=== PATIENT | female | born 1985 | race Caucasian/White ===

== ENCOUNTER 2020-08-12 06:40 | Outpatient (NON) | payer OTHER, SELFPAY ==
[2020-08-12 17:47] LABS: SARS-CoV-2 RNA PCR Negative
== END 2020-08-12 06:41 ==
PROVIDERS: PCP Family Medicine; Visit Provider Nurse Practitioner Family
DX: Z20.828 Contact with and (suspected) exposure to other viral communicable diseases (principal); R68.89 Other general symptoms and signs
CPT/HCPCS: 87635; C9803; U0003

== ENCOUNTER 2020-09-11 06:51 | Outpatient (NON) | payer OTHER, SELFPAY ==
[2020-09-16 08:59] LABS: SARS-CoV-2 RNA PCR Negative
== END 2020-09-11 06:52 ==
LOC: ANHCOVIDDT 07:09
PROVIDERS: PCP Family Medicine; Visit Provider Nurse Practitioner Family
DX: Z20.828 Contact with and (suspected) exposure to other viral communicable diseases (principal); R51.9 Headache, unspecified; R68.89 Other general symptoms and signs
CPT/HCPCS: 87635; C9803; U0003

== ENCOUNTER → 2020-12-28 00:33 | Outpatient (CLI) | payer OTHER, SELFPAY ==
[2020-12-28 19:08] LABS: SARS-CoV-2 RNA PCR Negative
== END ==
PROVIDERS: PCP Family Medicine; Visit Provider Obstetrics & Gynecology
DX: Z01.812 Encounter for preprocedural laboratory examination (principal); Z20.822 Contact with and (suspected) exposure to COVID-19
CPT/HCPCS: C9803; U0003; U0005

== ENCOUNTER 2020-12-28 12:34 | Outpatient (CLI) | payer OTHER, SELFPAY | END 2020-12-28 12:35 | disposition home or self-care (01) | PROVIDERS: PCP Family Medicine; Visit Provider Obstetrics & Gynecology | DX: N83.209 Unspecified ovarian cyst, unspecified side (principal) | CPT/HCPCS: 36415; 86850; 86900; 86901 ==

== ENCOUNTER 2020-12-31 00:10 | Day surgery (SDC) | payer OTHER, SELFPAY ==
[2020-12-27 17:07] VITALS: BMI 24.2
--- NOTE | 2020-12-28 09:23 | PM.IMHP ---
H&P: HPI History of Present Illness Date/Time: 12/28/20 09:23 Chief Complaint: pain Narrative: Jyoti Simmons is a 35 year old female G3 P 3 status post hysterectomy and right salpingo-oophorectomy is admitted for laparoscopic left salpingo-oophorectomy she is complex left ovarian cyst pain. Risks and benefits and procedure reviewed full. She had all questions answered and asked to proceed Review of Systems Review of Systems: All systems reviewed & are unremarkable except as noted in HPI and below PMFSH Past Medical History Medical History Asthma BMI 25.0-25.9,adult BMI 26.0-26.9,adult Endometriosis Surgical History Surgical History History of bunionectomy of left great toe Family History Family History Father Hypertension Grandparent Hypertension Carcinoma of colon Family history of coronary artery disease Family history of malignant neoplasm of ovary Mother Hyperlipidemia Sibling No problems noted. 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 Gender identity (if verbalized by the patient): Female Spiritual care concerns: No Meds Home Medications and Allergies Home Medications Medication Instructions Recorded Confirmed Type No Home Medications 12/27/20 12/27/20 History Allergies Allergy/AdvReac Type Severity Reaction Status Date / Time No Known Allergies Allergy Verified 12/27/20 17:12 Exam Const: General: no acute distress Eyes: General: appearance normal, both eyes and all related structures Neck: Neck: supple and no JVD Thyroid: thyroid normal Resp: Effort & Inspection: normal respiratory effort Auscultation: clear to auscultation bilaterally Cardio: Rate: regular rate Rhythm: regular rhythm GI: Inspection: non-distended GI Palp: Yes Soft to palpation, No Tenderness to palpation present (GI) and No Guarding due to palpation present (GI) Auscultation: normal bowel sounds : General: Yes bladder normal to palpation External Female Exam: normal external appearance Speculum Exam - Vagina: normal appearance of the vagina and normal vaginal discharge Speculum Exam - Cervix: Cervix absent Bimanual exam- vagina & uterus: uterus absent Bimanual Exam- Adnexa, other: tender on the left Skin: General skin exam: no rashes or lesions noted Extrem: General: normal to inspection and no edema Psych: Mental Status: mental status grossly normal Affect: normal affect Assessment and Plan Additional Plan impression: Complex left ovarian cyst Plan: Laparoscopic left salpingo-oophorectomy she
[2020-12-31] VITALS (10 sets, daily range): BP systolic 97–126; BP diastolic 59–91; PULSE 55–88; RESP 12–18; TEMP 36.1–36.3; O2SAT 99–100
--- NOTE | 2020-12-31 06:59 | WPDHPUPDATE1 ---
History and Physical Update Update Date/Time: 12/31/20 06:59 History and Physical has been reviewed, including an updated exam of the patient. There are NO changes in the patient's condition. Risks, benefits, and alternatives have been discussed and questions answered. Patient agrees to proceed with procedure.
--- NOTE | 2020-12-31 09:57 | P.PNAN_ITS ---
Anes - Initial Pre Proc Eval Procedure: Operation Date: 12/31/20 11:30 Proposed Procedures p Laparoscopic Left Salpingo-Oophorectomy - Mathieu Hess MD Date/Time: 12/31/20 09:57 Surgeon: Mathieu Hess MD Pre Op Diagnosis: Pain, Left Ovarian Cyst Patient Data Age: 35 Gender: F Height: 5 ft 6 in Weight: 72.1 kg Last Vital Signs Temp 36.1 C L 12/31/20 09:47 Pulse 83 12/31/20 09:47 Resp 18 12/31/20 09:47 BP 120/70 12/31/20 09:47 Pulse Ox 99 12/31/20 09:47 Allergies Allergy/AdvReac Type Severity Reaction Status Date / Time No Known Allergies Allergy Verified 12/31/20 09:49 Home Medications Medication Instructions Recorded Confirmed Type hydrocodone-acetaminophen 1 tablet PO Q6H PRN #20 tablet 12/31/20 Rx Patient hx anesthesia problems: none Family hx anesthesia problems: none PMFSH Past Medical History Medical History Asthma BMI 25.0-25.9,adult BMI 26.0-26.9,adult Endometriosis Surgical History Surgical History History of bunionectomy of left great toe Family History Family History Father Hypertension Grandparent Hypertension Carcinoma of colon Family history of coronary artery disease Family history of malignant neoplasm of ovary Mother Hyperlipidemia Sibling No problems noted. 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 Questions were solicited and answers provided to the satisfaction of the patient/family/POA.
[2020-12-31] MEDS: KETOROLAC 15 MG/ML VIAL (*BKC) IV PUSH (10:09)
[2020-12-31] MEDS: ACETAMINOPHEN 500 MG TABLET 1000 MG PO (10:09)
[2020-12-31] MEDS: LACTATED RINGERS 1,000 ML 30 ML IV CONT (10:10)
[2020-12-31] MEDS: SCOPOLAMINE 1.5 MG PATCH TRANSDERM (10:18)
--- NOTE | 2020-12-31 11:37 | P.OP_ITS ---
Procedure Note - Detailed Date of procedure: 12/31/20 Pre-op diagnosis: Pain, Left Ovarian Cyst Surgeon: Mathieu Hess MD Postop diagnosis: Pelvic pain/left ovarian cyst Procedure: Laparoscopic left salpingo-oophorectomy Anesthesia: General endotracheal EBL: 5cc Complications: None Findings absent uterus right ovary and tube Description of procedure: The patient was prepped draped in the normal sterile fashion placed in the dorsal lithotomy position. Under excellent general endotracheal anesthesia weighted speculum placed in posterior fornix vagina. A sponge stick was placed in the bladder draining clear urine. The weighted speculum was removed and the gloves were changed. A supraumbilical incision made the Veress needle passed in the abdomen. The abdomen filled with CO2 gas [id number]. The 5mm trocar advanced under direct visualization assuring no injury. The patient was placed in Trendelenburg and a suprapubic incision made. No injury seen as it was seen under direct visualization. A left lower quadrant incision made in the 8mm trocar advanced under direct visualization assuring no injury. The there were some adhesions from the colon to the left lateral sidewall and these were sharply dissected. The large left ovarian cyst was seen for documentation undertaken the i nfundibulopelvic structure was then skeletonized and serially clamped burned and cut with the LigaSure. This was placed in the Endo-Catch and removed through the left lower quadrant. Hemostasis was assured and irrigation was undertaken to clear. The gas removed from the abdomen and the trocars removed. The trocars closed with 4 O Monocryl and glue. The patient was awakened. All sponge, needle, instrument counts were correct. There were no immediate complications
[2020-12-31] MEDS: oxyCODONE HCL (*CRX) 5 MG TAB IR PO (13:29)
--- NOTE | 2020-12-31 13:44 | SUR.PHASEII ---
estrogel sample given to patient
== END 2020-12-31 14:00 | disposition home or self-care (01) ==
PROVIDERS: Family Provider Family Medicine; PCP Family Medicine; Visit Provider Obstetrics & Gynecology
PROC: (CPT 49320; principal; 2020-12-31 11:30)
DX: R10.2 Pelvic and perineal pain (principal); N83.02 Follicular cyst of left ovary; N83.8 Other noninflammatory disorders of ovary, fallopian tube and broad ligament; N73.6 Female pelvic peritoneal adhesions (postinfective); Z87.891 Personal history of nicotine dependence
CPT/HCPCS: 58661; 36415; 86850; 86900; 86901; 88305; A9270; C9803; J0330; J1100; J1885; J2250; J2405; J2704; J3010; J7120; U0003; U0005

== ENCOUNTER 2022-01-27 02:12 | Day surgery (SDC) | payer OTHER, SELFPAY ==
[2022-01-26 09:55] VITALS: BMI 26.6
--- NOTE | 2022-01-26 10:00 | PC.NURSE ---
Report to the Outpatient Waiting Room, entrance under the green pavilion located off [facility], at time 0900 on date _01/27/22 . OR Time: ___1100 . - You and your visitor will be asked a series of questions to screen for COVID 19 for your protection. - A mask is required within the hospital. Preoperative COVID Testing Requirements: No COVID Test needed if: (proof is required; if not received patient will have Rapid Test prior to entry) - Patient has received COVID Vaccine at least 14 days prior to procedure date or - Patient has positive COVID test result within last 90 days of surgery date. COVID Test needed if above criteria is not met If not COVID vaccinated a COVID test must be conducted within 72 hours of surgery and patient is asked to isolate self from time of testing until procedure. You will go to the [facility] for your COVID testing. The [facility] is located at the corner of [address] [facility]. You will only be called if COVID results are positive and your surgeon may reschedule your elective surgery date. Patients may have clear liquids (water, carbonated beverages, clear teas, apple juice) until 3 hours prior to surgery with a maximum of 20 ounces. - No food from midnight until time of surgery - Infants may have breast milk until 4 hours before surgery, formula 6 hours prior to surgery. - Children will be allowed to drink immediately following surgery. If applicable, please bring a bottle or sippy cup to assist with drinking. Juice, water, soda, and popsicles are readily available. For infants on formula, please bring formula the day of surgery. Pacifiers are allowed. Take the following medications with a SIP of water the morning of surgery: ___INHALER IF NEEDED Medications to discontinue per physician NONE Date to take last dose Please no make-up, nail irish, hairspray, perfume, deodorant, or body powder the day of surgery. No jewelry (including any body piercings) or valuables the day of surgery, leave them at home. Please take a shower or bath the night before, or the morning of, surgery with an antibacterial soap. Wear comfortable, loose fitting clothing. Children are encouraged to wear pajamas. - Jewelry must be removed prior to entering the operating room. Rings and piercings that are not removed may be cut off. - The hospital will not accept responsibility for valuables. - Please leave all valuables, including medications, at home the day of surgery. If you are going home after surgery, a licensed sprinkler truck driver must drive you home. - NO public transportation without another adult. - We recommend that an adult stay with you for 24 hours following discharge. - We also recommend that you do not drive, make important decision, drink alcoholic beverages, or take any drugs that were not prescribed by your health care provider for at least 24 hours after your discharge time. For Pediatric surgeries, we recommend two adults accompany the child home (only one inside the building at this time). One visitor will be allowed to accompany the patient into the hospital. Patients visitor will be instructed to remain with patient at all times or leave the building. We will allow the visitor to come back to the postoperative area when patient is ready. Follow any additional instructions given to you from your surgeon. Telephone instructions given to ___PATIENT and asked if any additional questions and then verbalized understanding. Patient advised to call surgeon office or pre surgery nurse liaison [phone] if any additional questions.
--- NOTE | 2022-01-26 16:40 | PM.IMHP ---
H&P: HPI History of Present Illness Date/Time: 01/26/22 16:40 Chief Complaint: nasal obstruction nasal congestion septal deviation nasal septal fracture nasal bone fracture Narrative: patient presents for planned surgical procedure no change in symptoms no change in history Review of Systems Constitutional: Constitutional: Denies fatigue, Denies fever(s) and Denies lethargy Eyes: Eyes: Denies blurry vision and Denies change in vision ENT: Reports as per HPI Cardiovascular: Cardiovascular: Denies chest pain Respiratory: Respiratory: Denies cough Endocrine: Endocrine: Denies fatigue Hematologic/Lymphatic: Hematologic/Lymphatic: Denies easy bleeding, Denies easy bruising and Denies lymphadenopathy Allergic/Immunologic: Allergic/Immunologic: Denies seasonal rhinorrhea [facility] Past Medical History Medical History Asthma BMI 25.0-25.9,adult BMI 26.0-26.9,adult Endometriosis Surgical History Surgical History History of bunionectomy of left great toe Family History Family History Father Hypertension Grandparent Hypertension Carcinoma of colon Family history of coronary artery disease Family history of malignant neoplasm of ovary Mother Hyperlipidemia Sibling No problems noted. 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 Gender identity (if verbalized by the patient): Female Spiritual care concerns: No Meds Home Medications and Allergies Home Medications Medication Instructions Recorded Confirmed Type estradiol 0.5 mg tablet 0.5 mg PO DAILY 01/24/22 01/26/22 History albuterol 1 mcg INHALATION PRN PRN 01/26/22 01/26/22 History Allergies Allergy/AdvReac Type Severity Reaction Status Date / Time No Known Allergies Allergy Verified 01/26/22 09:44 Exam Const: General: cooperative, healthy appearing, comfortable, well developed and alert HENMT: Head: normal to inspection, normocephalic and atraumatic Ears: hearing grossly normal bilaterally, external ears normal, TM's normal bilaterally and EAC's normal General nose exam: external nose not normal ( right deviation ecchymosis), Normal nares present, No nasal polyps present, Normal nasal mucous membranes and turbinates present and abnormal septum ( left deviation) Face and sinus: normal facial exam Mouth: Yes Normal oral and palatal mucosa present, Yes lip normal, Yes tongue normal, Yes oropharynx normal and Yes moist mucous membranes Teeth and gingiva: dentition normal and gingiva normal Throat: posterior oropharynx normal, tonsils normal and uvula midline Eyes: General: appearance normal, both eyes and all related structures Periorbital: periorbital findings normal Eyelids: eyelids normal Conjunctivae: conjunctivae normal Sclera: sclerae normal Neck: Neck: normal visual inspection, full ROM and no lymphadenopathy Thyroid: thyroid normal Lymphatic: no lymphadenopathy noted Resp: Effort & Inspection: normal respiratory effort and able to speak in complete sentences Cardio: Jugular venous distension: no JVD Neuro: Cranial nerves: Yes CN's II-XII intact bilaterally Assessment and Plan Assessment and plan (1) Nasal obstruction: Code(s): J34.89 - Other specified disorders of nose and nasal sinuses Status: Acute Assessment and Plan: plan is for the operating room close reduction nasal septal
[2022-01-27] VITALS (8 sets, daily range): BP systolic 105–125; BP diastolic 61–94; PULSE 57–78; RESP 12–16; TEMP 36.1–36.3; O2SAT 98–100; BMI 26.7
--- NOTE | 2022-01-27 07:21 | WPDHPUPDATE1 ---
History and Physical Update Update Date/Time: 01/27/22 07:21 History and Physical has been reviewed, including an updated exam of the patient. There are NO changes in the patient's condition. Risks, benefits, and alternatives have been discussed and questions answered. Patient agrees to proceed with procedure.
[2022-01-27] MEDS: ACETAMINOPHEN 500 MG TABLET 1000 MG PO (09:30)
[2022-01-27] MEDS: LACTATED RINGERS 1,000 ML 30 ML IV CONT ×2 (10:01→13:32)
--- NOTE | 2022-01-27 10:07 | P.PNAN_ITS ---
Anes - Initial Pre Proc Eval Procedure: Operation Date: 01/27/22 11:00 Proposed Procedures p Closed Reduction Nasal Fracture, - Cirilo Laguerre MD s Repair Nasal Septal Fracture - Cirilo Laguerre MD Date/Time: 01/27/22 10:07 Surgeon: Cirilo Laguerre MD Pre Op Diagnosis: nasal fracture Patient Data Age: 36 Gender: F Height: 1.65 m Weight: 73 kg Last Vital Signs Temp 36.1 C L 01/27/22 09:34 Pulse 78 01/27/22 09:34 Resp 16 01/27/22 09:34 BP 113/76 01/27/22 09:34 Pulse Ox 99 01/27/22 09:34 Allergies Allergy/AdvReac Type Severity Reaction Status Date / Time No Known Allergies Allergy Verified 01/27/22 09:24 Home Medications Medication Instructions Recorded Confirmed Type estradiol 0.5 mg tablet 0.5 mg PO DAILY 01/24/22 01/27/22 History albuterol 1 mcg INHALATION PRN PRN 01/26/22 01/27/22 History Patient hx anesthesia problems: none Family hx anesthesia problems: none Results Review: All pre-operative results and documents have been reviewed as part of the pre-operative evaluation. [facility] Past Medical History Medical History Asthma BMI 25.0-25.9,adult BMI 26.0-26.9,adult Endometriosis Surgical History Surgical History (Updated 01/27/22 @ 10:08 by Mathieu Syed MD) H/O breast augmentation H/O laparoscopy H/O: hysterectomy History of bunionectomy of left great toe Family History Family History Father Hypertension Grandparent Hypertension Carcinoma of colon Family history of coronary artery disease Family history of malignant neoplasm of ovary Mother Hyperlipidemia Sibling No problems noted. 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 Informed Consent: The patient's anesthetic plan and its attendant risks and benefits were discussed with the patient/family/POA. Questions were solicited and answers provided to the satisfaction of the patient/family/POA.
[2022-01-27] MEDS: SCOPOLAMINE 1.5 MG PATCH TRANSDERM (10:18)
[2022-01-27] MEDS: OXYMETAZOLINE HCL 0.05% NAS 15 ML BTL (*BKC) 1 SPRAY NASAL (11:43)
[2022-01-27] MEDS: GELATIN SPONGE 12-7MM 1 EACH TOPICAL (11:44)
[2022-01-27] MEDS: fentaNYL CITRATE INJ (*CRX) 100 MCG/2 ML VIAL 25 MCG IV PUSH ×6 (12:20→13:15)
--- NOTE | 2022-01-27 13:04 | W.PM.PROC2 ---
Procedure Note - Detailed Date of Procedure 01/27/22 Pre-op Diagnosis nasal fracture, nasal septal fracture, nasal obstruction Post-op Diagnosis Same Procedure Performed Turbinate outfracture nasal septal closed reduction nasal bone closed reduction Surgeon Cirilo Laguerre MD Anesthesia General Indications See above Findings Moderately straight nasal septum following closed reduction straightened dorsum of nose mild reduction in dorsal hump much more patent airway. Description of Procedure Patient identified consent verified. Patient brought operating room. Time-out performed. General anesthesia induced. Endotracheal tube secured. Taped to lower lip midline. Afrin-soaked pledgets placed in bilateral nasal passages. Patient prepped and draped. Second time-out performed. Afrin-soaked pledgets removed. Nose examined with headlight nasal speculum aforementioned findings noted. Stokes elevator utilized to remove sorry Boies elevator utilized to outfracture the turbinates infractured the septum from left to right straightening. Much more patent airways. Distance from columella to nasal apex right knee on measured finger placed to ensure safety of the orbit Stokes elevator placed in the left nasal passage outfractured while the right nasal was pushed in his it was convex crack noted. Blood noted as well confirming refraction of the bone. Much better cosmesis following this. Bilateral nasal passages suction to the choana. Gelfoam placed in the left nasal vault stenting it open. Brown tape placed over the dorsum. Aquaplast splint fashioned and placed over the dorsum as well over the brown tape. Brown tape placed over the Aquaplast splint. This marked end of the procedure. Care the patient turned over to Anesthesiology. I performed all dictated portions of the procedure. No complications. Total blood loss approximately 5 cc. Estimated Blood Loss 5 Drains No Packing Yes Pathology None sent Complications No immediate complications Condition Stable Disposition PACU
[2022-01-27] MEDS: oxyCODONE HCL (*CRX) 5 MG TAB IR PO (13:48)
== END 2022-01-27 14:25 | disposition home or self-care (01) ==
PROVIDERS: PCP Family Medicine; Visit Provider Otolaryngology
PROC: 0NSBXZZ Reposition Nasal Bone, External Approach (ICD-10-PCS; CPT 21315; principal; 2022-01-27 11:00)
DX: J34.89 Other specified disorders of nose and nasal sinuses (principal); S02.2XXA Fracture of nasal bones, initial encounter for closed fracture; X58.XXXA Exposure to other specified factors, initial encounter; J45.909 Unspecified asthma, uncomplicated; N80.9 Endometriosis, unspecified; J34.2 Deviated nasal septum; R09.81 Nasal congestion; Z79.51 Long term (current) use of inhaled steroids; Z87.891 Personal history of nicotine dependence
CPT/HCPCS: 21320; 30930; A9270; J0330; J2250; J2405; J2704; J3010; J7120

== ENCOUNTER 2023-05-08 14:46 | Emergency (ER) | payer OTHER, SELFPAY ==
--- NOTE | ~2023-05-08 | XR_ITS ---
XR hand LT min 3V DATE: 05/08/2023 15:15 INDICATION: Pain in hand after playing softball 2 weeks ago TECHNIQUE: 3 views COMPARISON: None FINDINGS: No fracture or dislocation, periosteal reaction or bone destruction, erosive change or jono drocalcinosis. Joint spaces are preserved. IMPRESSION: Negative Reviewed, dictated and finalized at location A. IMPRESSION: Negative
[2023-05-08 15:08] VITALS: BP 105/77; PULSE 74; RESP 16; TEMP 36.1; O2SAT 100
--- NOTE | 2023-05-08 15:17 | ED.UPPEXIN ---
HPI - Extremity Injury (Upper) General Chief Complaint: Extremity Injury, Upper Stated Complaint: lt hand pain Time Seen by Provider: 05/08/23 15:17 Source: patient Mode of arrival: ambulatory Limitations: no limitations History of Present Illness HPI narrative: 38-year-old female presents with complaint of pain to dorsal aspect of left hand for 3 weeks. Reports that she noticed pain during a softball game. Unsure if it was related to catching a ball or when she was batting. States she play softball several nights a week. Pain worse when lifting heavy objects and gripping. Patient would like a x-ray today because she is concerned for fracture due to continued pain. Range of motion and distal neurovascularly intact. All systems reviewed and negative except as noted above. Related Data Home Medications Medication Instructions Recorded Confirmed albuterol 90 mcg/actuation aerosol 1 mcg inhalation PRN PRN Shortness 01/26/22 05/08/23 inhaler Of Breath Allergies Allergy/AdvReac Type Severity Reaction Status Date / Time No Known Allergies Allergy Verified 01/01/23 13:06 Review of Systems Review of Systems: CONSTITUTIONAL: Denies fever, chills, or sweats. EYES: Denies visual changes, redness, or discharge. ENT: Denies rhinorrhea, congestion, sore throat, or otalgia. CARDIOVASCULAR: Denies chest pain, palpitations, or edema. RESPIRATORY: Denies cough or dyspnea. GASTROINTESTINAL: Denies abdominal pain, nausea, vomiting, or diarrhea. GENITOURINARY: Denies dysuria or hematuria. SKIN: Denies rash or itching. MUSCULOSKELETAL: Denies back pain, joint pain, or myalgia. Reports pain to left hand. NEUROLOGIC: Denies headache, numbness, or weakness. PSYCHIATRIC: Denies anxiety or depression. All other systems reviewed are negative, except as documented in HPI. [facility] Past Medical History Medical History Asthma BMI 25.0-25.9,adult BMI 26.0-26.9,adult BMI 27.0-27.9,adult Endometriosis Surgical History Surgical History H/O breast augmentation H/O laparoscopy H/O: hysterectomy History of bunionectomy of left great toe Family History Family History Father Hypertension Grandparent Hypertension Carcinoma of colon Family history of coronary artery disease Family history of malignant neoplasm of ovary Mother Hyperlipidemia Sibling No problems noted. Social History Social History Smoking packs per day: 1 Smoking cigarettes per day: 20.0 Years smoked: 5 Smoking pack-years: 5.00 Smoking status: Former smoker Tobacco type: cigarettes Smoking end date: 10/21/07 Alcohol intake: current Drinks per week: 6 Substance use: never Substance use type: does not use Lack of Transportation: No Lack of Food: Never True Current Housing: I Have Housing Concerned About Future Housing: No Difficulty Paying Gas/Electric Bills: No Difficulty Paying for Meds: No Currently Unemployed: No Education: Master's Degree or Higher Difficulty w/ Childcare or Family Care: No Living arrangements: with family Occupation/Education: occupation Additional occupation/education comments: [employer] Gender identity (if verbalized by the patient): Female Spiritual care concerns: No Comments At time of signature, agree with nursing past medical, surgical, social and family history. There is no relevant family history pertinent to the presenting complaint. Exam Narrative: GENERAL: This is a well-nourished, well-developed patient, in no apparent distress. HEAD: normocephalic, atraumatic. EYES: PERRL. Sclera clear/white. Vision is grossly intact. EARS: External ears normal NOSE: External nose normal NECK: Neck supple, non-tender without ly
== END 2023-05-08 15:39 | disposition home or self-care (01) ==
PROVIDERS: Emergency Provider Nurse Practitioner Family; PCP Family Medicine
DX: S63.92XA Sprain of unspecified part of left wrist and hand, initial encounter (principal); T14.90XA Injury, unspecified, initial encounter; Z87.891 Personal history of nicotine dependence
CPT/HCPCS: 73130; 99213; G0463

== ENCOUNTER → 2023-06-21 16:23 | Outpatient (CLI) | payer OTHER, SELFPAY ==
--- NOTE | ~2023-06-21 | MM_ITS ---
EXAMINATION: MM scrn kristal implant BI w pretty HISTORY: Screening mammogram TECHNIQUE: Craniocaudal and mediolateral oblique 3-D tomosynthesis images with implant displacement a nd synthetic 2-D images were generated. Craniocaudal and mediolateral oblique views of the breasts wi thout implant displacement were obtained using full field digital mammography. CAD analysis was submi tted and interpreted. COMPARISON: 08/25/2016 BREAST PARENCHYMAL COMPOSITION: The breasts are heterogeneously dense, which may obscure small masses . FINDINGS: There is no evidence of suspicious mass, calcification, or architectural distortion to sugg est malignancy in either breast. There has been no suspicious interval change. IMPRESSION: 1. No mammographic evidence of malignancy. 2. Recommend routine screening mammography in one year. BI-RADS Category 1: Negative Reviewed, dictated and finalized at location A.
== END ==
PROVIDERS: PCP Obstetrics & Gynecology; Visit Provider Obstetrics & Gynecology
DX: Z12.31 Encounter for screening mammogram for malignant neoplasm of breast (principal)
CPT/HCPCS: 77063; 77067

== ENCOUNTER 2025-03-21 10:32 | Outpatient (CLI) | payer OTHER, SELFPAY ==
--- NOTE | ~2025-03-21 | XR_ITS ---
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 No fracture or t raumatic malalignment. No focal soft tissue abnormality. No foreign bodies. Stable appearance to ossi fic density projecting dorsal to the region of the second/third carpal metacarpal joints posteriorly, best seen on lateral view, likely related to remote trauma. Impression: 1: No acute bone or joint abscess. Reviewed, dictated and finalized at location A. Impression: 1: No acute bone or joint abscess.
== END 2025-03-21 10:33 | disposition home or self-care (01) ==
LOC: MICIMG 10:33
PROVIDERS: PCP Family Medicine
DX: M79.641 Pain in right hand (principal)
CPT/HCPCS: 73130

== ENCOUNTER 2025-04-08 09:09 | Outpatient (CLI) | payer OTHER, SELFPAY ==
--- NOTE | ~2025-04-08 | MM_ITS ---
EXAMINATION: MM scrn kristal implant BI w pretty HISTORY: Screening mammogram TECHNIQUE: Craniocaudal and mediolateral oblique 3-D tomosynthesis images with implant displacement a nd synthetic 2-D images were generated. Craniocaudal and mediolateral oblique views of the breasts wi thout implant displacement were obtained using full field digital mammography. CAD analysis was submi tted and interpreted. COMPARISON: Comparison to multiple prior studies sequentially, with oldest reviewed study dated 07/30. BREAST PARENCHYMAL COMPOSITION: Dense: The breasts are heterogeneously dense, which may obscure small masses FINDINGS: There is no evidence of suspicious mass, calcification, or architectural distortion to sugg est malignancy in either breast. There has been no suspicious interval change. IMPRESSION: 1. No mammographic evidence of malignancy. 2. Recommend routine screening mammography in one year. BI-RADS Category 1: Negative Reviewed, dictated and finalized at location []
== END 2025-04-08 09:10 | disposition home or self-care (01) ==
PROVIDERS: PCP Family Medicine; Visit Provider Obstetrics & Gynecology
DX: Z12.31 Encounter for screening mammogram for malignant neoplasm of breast (principal)
CPT/HCPCS: 77063; 77067

== ENCOUNTER 2025-05-04 14:05 | Outpatient (CLI) | payer OTHER, SELFPAY ==
--- NOTE | ~2025-05-04 | XR_ITS ---
Right Hand Technique: PA, oblique, and lateral views were obtained. Clinical History: Pain Findings: No acute fracture or dislocation is seen. Osseous alignment is anatomic. There is moderate degenerative change of the fifth DIP joint. Remaining joint spaces are intact. Soft tissues are unrem arkable. Impression: Moderate degenerative change of the fifth PIP joint. Reviewed, dictated and finalized at location . Impression: Moderate degenerative change of the fifth PIP joint.
--- NOTE | ~2025-05-04 | XR_ITS ---
Right wrist Technique: PA, oblique, lateral, and ulnar deviation views were obtained. Clinical History: Injury Findings: No acute fracture or dislocation is seen. Osseous alignment is anatomic. Joint spaces are p reserved. Soft tissues are unremarkable. Impression: Unremarkable right wrist radiographs. Reviewed, dictated and finalized at location . Impression: Unremarkable right wrist radiographs.
== END 2025-05-04 14:06 | disposition home or self-care (01) ==
LOC: MICIMG 14:07
PROVIDERS: PCP Family Medicine
DX: M19.042 Primary osteoarthritis, left hand (principal); S69.90XA Unspecified injury of unspecified wrist, hand and finger(s), initial encounter; X58.XXXA Exposure to other specified factors, initial encounter
CPT/HCPCS: 73110; 73130